=== PATIENT | female | born 1985 | race Caucasian/White ===

== ENCOUNTER 2018-10-09 01:26 | Emergency (ER) | payer MEDICAID ==
--- NOTE | 2018-10-09 04:21 | Emergency Department Report ---
ED Female HPI - General Chief complaint: Urogenital-Female Stated complaint: CLOGGED CATH, BACK PAIN, ABD PAIN Time Seen by Provider: 10/09/18 03:40 Source: patient, EMS Mode of arrival: Stretcher Limitations: Physical Limitation - History of Present Illness Initial comments: Mrs. Velazquez is a 32 yo female with hx of paraplegia due to spinal cord infa rction s/p fall who presents with blocked Yee catheter since yesterday morning. She had immediate relief when our ED nurse changed the yee catheter. Immediately 620 ml of urine filled the collection bag. She came to the ED for severe discomfort which has resolved. MD Complaint: other (urinary retention) -: Gradual, days(s) (1) Radiation: L flank Quality: dull Consistency: constant Improves with: other (Yee catheter change) Associated Symptoms: denies other symptoms - Related Data Home Medications Medication Instructions Recorded Confirmed Last Taken Levothyroxine [Synthroid] 175 mcg PO QAM 04/07/13 06/08/13 04/07/13 Previous Rx's Medication Instructions Recorded Last Taken Type HYDROcodone/APAP 5-325 [[place] 1 each PO Q8HR PRN #10 tablet 04/08/13 Unknown Rx 5/325 mg] Prednisone [predniSONE 5 mg (6-Day 5 mg PO QDAY #3 tab 04/08/13 Unknown Rx Pack, 21 Tabs)] Docusate Sodium [Colace] 100 mg PO BID PRN #60 capsule 06/08/13 Unknown Rx Ferrous Gluconate [Fergon] 325 mg PO QDAY #30 tablet 06/08/13 Unknown Rx oxyCODONE /ACETAMINOPHEN [Percocet 1 - 2 tab PO Q6HR PRN #30 tablet 06/08/13 Unknown Rx 5/325 mg] Ibuprofen [Motrin 800 MG tab] 800 mg PO TID PRN #30 tablet 06/09/14 Unknown Rx Sulfamethoxazole/Trimethoprim 1 each PO BID #14 tablet 06/09/14 Unknown Rx [Bactrim DS TAB] traMADol [Ultram] 50 mg PO Q6HR PRN #14 tablet 06/09/14 Unknown Rx Nitrofurantoin [place]/M-Cryst 100 mg PO Q12HR 7 Days #14 capsule 05/05/18 Unknown Rx [Macrobid CAP] Allergies Allergy/AdvReac Type Severity Reaction Status Date / Time No Known Allergies Allergy Verified 02/24/13 13:20 ED Review of Systems ROS: Stated complaint: CLOGGED CATH, BACK PAIN, ABD PAIN Other details as noted in HPI Comment: All other systems reviewed and negative Constitutional: denies: fever, malaise Respiratory: denies: cough Cardiovascular: denies: chest pain ED Past Medical Hx - Past Medical History Previous Medical History?: Yes Hx Hypertension: No Hx Congestive Heart Failure: No Hx Diabetes: No Hx Deep Vein Thrombosis: No Hx Renal Disease: No Hx Sickle Cell Disease: No Hx Seizures: No Hx Asthma: No Hx COPD: No Hx HIV: No Additional medical history: high cholesterol, hypothyroidism. lower back pain. bradycardia episodes - Surgical History Past Surgical History?: Yes Additional Surgical History: x 2 - Social History Smoking Status: Never Smoker Substance Use Type: None - Medications Home Medications: Home Medications Medication Instructions Recorded Confirmed Last Taken Type Levothyroxine [Synthroid] 175 mcg PO QAM 04/07/13 06/08/13 04/07/13 History HYDROcodone/APAP 5-325 [[place] 1 each PO Q8HR PRN #10 tablet 04/08/13 06/08/13 Unknown Rx 5/325 mg] Prednisone [predniSONE 5 mg (6-Day 5 mg PO QDAY #3 tab 04/08/13 06/08/13 Unknown Rx Pack, 21 Tabs)] Docusate Sodium [Colace] 100 mg PO BID PRN #60 capsule 06/08/13 Unknown Rx Ferrous Gluconate [Fergon] 325 mg PO QDAY #30 tablet 06/08/13 Unknown Rx oxyCODONE /ACETAMINOPHEN [Percocet 1 - 2 tab PO Q6HR PRN #30 tablet 06/08/13 Unknown Rx 5/325 mg] Ibuprofen [Motrin 800 MG tab] 800 mg PO TID PRN #30 tablet 06/09/14 Unknown Rx Sulfamethoxazole/Trimethoprim 1 each PO BID #14 tablet 06/09/14 Unknown Rx [Bactrim DS TAB] traMADol [Ultram] 50 mg PO Q6HR PRN #14 tablet 06/09/14 Unknown Rx Nitrofurantoin [place]/M-Cryst 100 mg PO Q12HR 7 Days #14 capsule 05/05/18 Unknown Rx [Macrobid CAP] ED Physical Exam - General Limitations: Physical Limitation General appearance: alert, in no apparent distress - Head Head exam: Present: atraumatic, normocephalic - Eye Eye exam: Present: normal appearance - ENT ENT exam: Present: mucous membranes moist - Neck Neck exam: Present: normal inspection, full ROM - Respiratory Respiratory exam: Present: normal lung sounds bilaterally. Absent: respiratory distress, wheezes, rales, rhonchi - Cardiovascular Cardiovascular Exam: Present: regular rate, normal rhythm. Absent: systolic murmur, diastolic murmur, rubs, gallop - GI/Abdominal GI/Abdominal exam: Present: soft, normal bowel sounds. Absent: distended, tenderness, guarding, rebound - Neurological Exam Neurological exam: Present: alert, oriented X3 - Psychiatric Psychiatric exam: Present: normal affect, normal mood - Skin Skin exam: Present: warm, dry, intact, normal color. Absent: rash ED Course Vital Signs 10/09/18 01:51 Temperature 98 F Pulse Rate 83 Respiratory 13 Rate Blood Pressure 104/70 [Left] O2 Sat by Pulse 96 Oximetry ED Medical Decision Making - Medical Decision Making Urinary retention caused by obstructed Yee catheter appropriately treated with Yee change by nurse here in the ED. Discharged home. Critical care attestation.: If time is entered above; I have spent that time in minutes in the direct care of this critically ill patient, excluding procedure time. ED Disposition Clinical Impression: Urinary retention, Obstructed Yee catheter, Paraplegia Disposition: TO HOME OR SELFCARE Is pt being admited?: No Does the pt Need Aspirin: No Condition: Stable Instructions: Yee Catheter Placement and Care (ED) Referrals: PRIMARY CARE, [Primary Care Provider] - 3-5 Days
[2018-10-09 04:25] VITALS: BP 99/59
== END 2018-10-09 13:08 | disposition home or self-care (01) ==
LOC: ED 01:26
DX: T83.098A Other mechanical complication of other urinary catheter, initial encounter (principal); E78.00 Pure hypercholesterolemia, unspecified; E03.9 Hypothyroidism, unspecified; G82.20 Paraplegia, unspecified
CPT/HCPCS: 51702